=== PATIENT | male | born 1975 | race Caucasian/White ===

== ENCOUNTER 2017-07-16 14:18 | Emergency (ER) | payer OTHER ==
[~2017-07-16] VITALS: Ht 190.5 cm; Wt 101.5 kg
[2017-07-16 15:56] VITALS: BP 129/89
== END 2017-07-16 16:00 | disposition home or self-care (01) ==
LOC: ED 15:58
DX: S16.1XXA Strain of muscle, fascia and tendon at neck level, initial encounter (principal); S29.012A Strain of muscle and tendon of back wall of thorax, initial encounter; S20.319A Abrasion of unspecified front wall of thorax, initial encounter; V49.9XXA Car occupant (driver) (passenger) injured in unspecified traffic accident, initial encounter; Y93.89 Activity, other specified; Y99.8 Other external cause status; Y92.410 Unspecified street and highway as the place of occurrence of the external cause
CPT/HCPCS: 72050; 72072; 99284